=== PATIENT | female | born 1995 | race Caucasian/White ===

== ENCOUNTER 2016-11-18 23:59 | Outpatient (CLI) | payer OTHER ==
[~2016-11-18] VITALS: Ht 167.6 cm; Wt 95.0 kg
[2016-11-19 00:25] VITALS: BP 117/76
[2016-11-19] MEDS ORDERED: TYLE325T5 PO (00:40)
[2016-11-19] MEDS ORDERED: PRENTAB9 PO (00:40)
== END 2016-11-19 02:00 | disposition home or self-care (01) ==
LOC: M LDO 23:59
PROVIDERS: ATTEND Obstetrics & Gynecology
DX: O26.892 Other specified pregnancy related conditions, second trimester (principal); R06.02 Shortness of breath; R51 Headache; M54.5 Low back pain; Z3A.24 24 weeks gestation of pregnancy

== ENCOUNTER 2016-11-23 23:08 | Emergency (ER) | payer OTHER ==
[~2016-11-23] VITALS: Ht 182.9 cm; Wt 113.4 kg
[~2016-11-23 23:08] MED LIST: PRENTAB9 PO; TYLE325T5 PO
[2016-11-23 23:09] VITALS: BP 119/69
[2016-11-24] MEDS ORDERED: AMOX500C PO (16:44)
== END 2016-11-24 01:51 | disposition left against medical advice (07) ==
LOC: M ED 11-24 00:35
DX: R22.0 Localized swelling, mass and lump, head (principal)

== ENCOUNTER 2016-11-24 15:46 | Emergency (ER) | payer OTHER ==
[~2016-11-24] VITALS: Ht 182.9 cm; Wt 97.5 kg
[2016-11-24 15:46] VITALS: BP 124/65
[2016-11-24] MEDS ORDERED: AMOX500C PO (16:44)
== END 2016-11-24 17:03 | disposition home or self-care (01) ==
LOC: M ED 16:54
DX: K04.7 Periapical abscess without sinus (principal)

== ENCOUNTER 2017-01-11 17:14 | Outpatient (CLI) | payer OTHER ==
[~2017-01-11] VITALS: Ht 182.9 cm; Wt 98.0 kg
[~2017-01-11 17:14] MED LIST changes: +AMOX500C PO
[2017-01-11 18:11] LABS: MEAN CORPUSCULAR HEMOGLOBIN 30.8 pg (27.0-33.0); MEAN CORPUSCULAR HGB CONC 34.9 g/dl (32.0-36.5); MEAN CORPUSCULAR VOLUME 88.3 fl (80.0-96.0); RED CELL DISTRIBUTION WIDTH 12.7 % (11.5-14.5); WHITE BLOOD COUNT 12.9 K/mm3 (4.0-10.0)
[2017-01-11 18:33] LABS: ALBUMIN 3.1 GM/DL (3.2-5.2); ALBUMIN/GLOBULIN RATIO 0.82 (1.00-1.93); ALKALINE PHOSPHATASE 109 U/L (45-117); ALT/SGPT 20 U/L (12-78); ANION GAP 9 MEQ/L (8-16); AST/SGOT 15 U/L (15-37); BILIRUBIN,TOTAL 0.4 MG/DL (0.2-1.0); BLOOD UREA NITROGEN 6 MG/DL (7-18); CALCIUM LEVEL 8.6 MG/DL (8.5-10.1); CARBON DIOXIDE LEVEL 21 MEQ/L (21-32); CHLORIDE LEVEL 104 MEQ/L (98-107); CREATININE FOR GFR 0.67 MG/DL (0.55-1.02); GLOMERULAR FILTRATION RATE > 60.0 (>60); GLUCOSE, FASTING 102 MG/DL (70-105); POTASSIUM SERUM 3.6 MEQ/L (3.5-5.1); SODIUM LEVEL 134 MEQ/L (136-145); TOTAL PROTEIN 6.9 GM/DL (6.4-8.2)
== END 2017-01-11 19:25 | disposition home or self-care (01) ==
LOC: M LDO 17:14 → EDBD 17:14 → M LDO 19:25
PROVIDERS: ATTEND Student in an Organized Health Care Education/Training Program
DX: O26.893 Other specified pregnancy related conditions, third trimester (principal); Z3A.28 28 weeks gestation of pregnancy; M54.5 Low back pain; R11.0 Nausea; R53.81 Other malaise

== ENCOUNTER 2017-02-19 21:48 | Outpatient (CLI) | payer OTHER ==
[~2017-02-19] VITALS: Ht 182.9 cm; Wt 100.0 kg
[2017-02-19 21:54] VITALS: BP 125/69
== END 2017-02-19 22:30 | disposition home or self-care (01) ==
LOC: M LDO 21:48
PROVIDERS: ATTEND Student in an Organized Health Care Education/Training Program
DX: O47.1 False labor at or after 37 completed weeks of gestation (principal); Z3A.37 37 weeks gestation of pregnancy; Z88.2 Allergy status to sulfonamides

== ENCOUNTER 2017-03-16 05:58 | Inpatient (IN) | payer OTHER ==
[~2017-03-16] VITALS: Ht 182.9 cm; Wt 70.0 kg
[2017-03-16] VITALS (21 sets, daily range): BP systolic 86–124; BP diastolic 48–82
[2017-03-16 06:49] LABS: MEAN CORPUSCULAR HEMOGLOBIN 30.9 pg (27.0-33.0); MEAN CORPUSCULAR HGB CONC 35.7 g/dl (32.0-36.5); MEAN CORPUSCULAR VOLUME 86.6 fl (80.0-96.0); RED CELL DISTRIBUTION WIDTH 13.8 % (11.5-14.5); WHITE BLOOD COUNT 11.8 K/mm3 (4.0-10.0)
[2017-03-16] MEDS ORDERED: miSOPROStol 50 MCG 1/2 TAB (S0191) PO ONE (09:00)
[2017-03-16] MEDS: LR 1,000 ML IV SCH ×2 (09:03→14:21)
[2017-03-16] MEDS ORDERED: ACETAMINOPHEN TAB 650MG DOSE (2X325MG) PO ONE (10:00)
[2017-03-16] MEDS ORDERED: OXYTOCIN DRIP 30 UNITS in APPROPRIATE DILUENT 1 EA IV SCH (15:00)
[2017-03-16] MEDS ORDERED: OXYTOCIN 30 UNITS IN 0.9% NaCl 500ML IV BAG (J2590) As Ordered ONE (15:00)
--- NOTE | 2017-03-16 23:19 | IPNPDOC ---
Text Note Date of Service The patient was seen on 03/16/17. NOTE SBAR from [facility] Hitesh ~1946 H&P reviewed and chart as well Pit at 10 mu/min NST shows mod cydney but more lates than not last ~20-30 min... due to BL change not noticed by the staff. Pos change with immediate resolution. Cx /-2 Plan on recheck in ~4 hrs, sooner prn. Cont to up pitocin to keep ctx's reg, epidural OK on demand. Sessions VS,Kerri, I+O VS, Kerri, I+O Laboratory Tests 03/16/17 06:30 Red Blood Count 4.16, Mean Corpuscular Volume 86.6, Mean Corpuscular Hemoglobin 30.9, Mean Corpuscular Hemoglobin Concent 35.7, Red Cell Distribution Width 13.8 Vital Signs Date Time Temp Pulse Resp B/P (MAP) Pulse Ox O2 Delivery O2 Flow Rate FiO2 03/16/17 18:02 98.2 78 18 112/66 (81) SESSIONS,TED Sosa MD Mar 16, 2017 23:19
[2017-03-16] MEDS ORDERED: CALCIUM CARBONATE 500 MG CHEW U/D PO PRN (23:45)
[2017-03-17] VITALS (74 sets, daily range): BP systolic 83–124; BP diastolic 48–77
--- NOTE | 2017-03-17 03:22 | IPNPDOC ---
Text Note Date of Service The patient was seen on 03/17/17. NOTE Pit at 7 mu/min, pain getting very significant NST Cat 1, Reg ctx's Cx unchanged Desires Nubain /Phenergan Incr pitocin per SOP Recheck ~0730, will SBAR to Dr Carranza at that time Sessions MD HERNANDEZ,Kerri, I+O VSKerri I+O Laboratory Tests 03/16/17 06:30 Red Blood Count 4.16, Mean Corpuscular Volume 86.6, Mean Corpuscular Hemoglobin 30.9, Mean Corpuscular Hemoglobin Concent 35.7, Red Cell Distribution Width 13.8 Vital Signs Date Time Temp Pulse Resp B/P (MAP) Pulse Ox O2 Delivery O2 Flow Rate FiO2 03/16/17 23:32 63 17 99/55 (70) 03/16/17 18:02 98.2 I&O- Last 24 Hours up to 6 AM 03/17/17 05:59 Intake Total 1880 ml Output Total 1600 ml Balance 280 ml SESSIONS,TED Sosa MD Mar 17, 2017 03:22
[2017-03-17] MEDS ORDERED: NALBUPHINE HCL 10 MG/ML AMP (J2300) IV ONE (03:30)
[2017-03-17] MEDS ORDERED: PROMETHAZINE INJ 25 MG/ML VIAL (J2550) IV ONE (03:30)
[2017-03-17] MEDS ORDERED: NALBUPHINE HCL 10 MG/ML AMP (J2300) IM ONE (03:30)
[2017-03-17] MEDS ORDERED: FENTANYL 2MCG/ML ROPIVACAINE 0.2% IN 0.9% NACL 200ML IVBAG As Ordered ONE (07:09)
[2017-03-17] MEDS ORDERED: REFRIGERATOR IV KEYS XX PRN (08:45)
[2017-03-17] MEDS ORDERED: EPIDURAL COMMENT XX SCH (08:45)
[2017-03-17] MEDS ORDERED: EPIDURAL/PCA KEYS XX PRN (08:45)
[2017-03-17] MEDS ORDERED: LACTATED RINGER'S 1000 ML IV PRN (08:45)
[2017-03-17] MEDS ORDERED: diphenhydrAMINE INJ 50MG/ML VIAL (J1200) IV PRN (08:45)
[2017-03-17] MEDS ORDERED: ePHEDrine SULFATE 25 MG/5 ML(5MG/ML) SYRINGE IV PRN (08:45)
[2017-03-17] MEDS: FENTANYL/ROPIVACAINE/NACL BAG 200 ML EPIDURAL SCH (08:45)
[2017-03-17] MEDS ORDERED: ONDANSETRON 4MG/2ML VIAL (J2405) IV PRN ×2 (08:45→19:40)
[2017-03-17] MEDS ORDERED: NALOXONE INJ 0.4 MG/1 ML VIAL (J2310) IV PRN ×3 (08:45→19:40)
[2017-03-17] MEDS: LR 1,000 ML IV SCH (14:10)
[2017-03-17] MEDS ORDERED: BUPIVACAINE HCL 0.25% 10 ML VIAL SC ONE (17:15)
[2017-03-17] MEDS ORDERED: BICITRA 30ML SOLN UDC PO ONE (17:15)
[2017-03-17] MEDS ORDERED: ACETAMINOPHEN 650 MG SUPP PR ONE (17:15)
[2017-03-17] MEDS ORDERED: AZITHROMYCIN INJ 500 MG, VIAL MATE ADAPTER 1 EACH in D5W 250 ML IV ONE (17:15)
[2017-03-17 17:34] LABS: MEAN CORPUSCULAR HEMOGLOBIN 30.4 pg (27.0-33.0); MEAN CORPUSCULAR HGB CONC 34.9 g/dl (32.0-36.5); MEAN CORPUSCULAR VOLUME 87.2 fl (80.0-96.0); RED CELL DISTRIBUTION WIDTH 13.5 % (11.5-14.5); WHITE BLOOD COUNT 14.7 K/mm3 (4.0-10.0)
[2017-03-17] MEDS ORDERED: KETOROLAC 60 MG/2 ML VIAL (J1885) As Ordered ONE (19:06)
[2017-03-17] MEDS ORDERED: OXYTOCIN INJ 10 UNITS/ML VIAL (J2590) As Ordered ONE (19:06)
[2017-03-17] MEDS ORDERED: ONDANSETRON 4MG/2ML VIAL (J2405) As Ordered ONE (19:06)
[2017-03-17] MEDS ORDERED: MORPHINE PRES-FREE INJ 10 MG/10 ML VIAL (J2274) As Ordered ONE (19:06)
[2017-03-17] MEDS ORDERED: METOCLOPRAMIDE INJ 10MG/2ML VIAL (J2765) IV PRN (19:40)
[2017-03-17] MEDS ORDERED: NALBUPHINE HCL 10 MG/ML AMP (J2300) IV PRN ×2 (19:40→20:45)
[2017-03-17 19:42] LABS: CORD GAS HCO3 A 26.9 MEQ/L; CORD GAS PCO2 A 69.7 mmHg; CORD GAS PH A 7.204 UNITS; CORD GAS PO2 A 18.8 mmHg; CORD GAS SBC A 20.3 MEQ/L
[2017-03-17 19:45] LABS: CORD GAS ABE V -3.8; CORD GAS HCO3 V 22.1 MEQ/L; CORD GAS O2 SAT V 49.5 %; CORD GAS PCO2 V 43.2 mmHg; CORD GAS PH V 7.327 UNITS; CORD GAS PO2 V 22.1 mmHg; CORD GAS SBC V 20.2 MEQ/L; CORD GAS TCO2 V 23.4 MEQ/L
[2017-03-17] MEDS ORDERED: RHOGAM 300 MCG (1500 IU) INJ (J2790) IM SCH (20:15)
[2017-03-17] MEDS ORDERED: ANUSOL HC CREAM 30GM TOP PRN (20:15)
[2017-03-17] MEDS ORDERED: DOCUSATE SODIUM 100 MG CAP PO PRN (20:15)
[2017-03-17] MEDS ORDERED: PERCOCET 5MG/325MG TAB PO PRN ×2 (20:15)
[2017-03-17] MEDS ORDERED: METHYLERGONOVINE MALEATE 0.2 MG TAB PO PRN (20:15)
[2017-03-17] MEDS ORDERED: MOM 30ML SUSPENSION UDC PO PRN (20:15)
[2017-03-17] MEDS ORDERED: MEASLES,MUMPS,RUBELLA VACCINE INJ (MMR-II) (90707) SC SCH (20:15)
[2017-03-17] MEDS ORDERED: MEPERIDINE INJ 25 MG/ML VIAL (J2175) IV PRN (20:45)
[2017-03-17] MEDS ORDERED: LR 1,000 ML IV SCH (20:45)
[2017-03-17] MEDS ORDERED: fentaNYL 100 MCG/2 ML INJECTION (J3010) IV PRN (20:45)
[2017-03-17] MEDS: OXYTOCIN DRIP 30 UNITS in APPROPRIATE DILUENT 1 EA IV SCH (20:59)
--- NOTE | 2017-03-17 22:22 | RO ---
DATE OF PROCEDURE: 03/17/2017 This lady is a 1, para 0 admitted at 41 weeks for induction of labor. She had Cytotec and Pitocin, artificial rupture of membranes and she consistently had intermittent late decelerations with the Pitocin on, we turned the Pitocin off. Category one strip was entertained. Pitocin was placed on again. Late decelerations, intermittent. Always having good variability. She got to about 4 cm dilatation with the presenting part not well applied to the cervix in the persistent occiput posterior (POP) position. Eventually, with the inability to have contractions and have a good strip we after discussing with the patient and , elected to do a primary section. PREPROCEDURE DIAGNOSES: Nonreassuring heart strip on Pitocin. Post age gestation, failure to dilated, failure to descend, POP position. POSTPROCEDURE DIAGNOSES: Nonreassuring heart strip on Pitocin. Post age gestation, failure to dilated, failure to descend, POP position. Macrosomia. SURGEON: Mukesh Carranza MD SUPERINTENDENT REFUSE DISPOSAL: Raquel Perla MD ANESTHESIA: Epidural plus local anesthetic for intraperitoneal procedures. ESTIMATED BLOOD LOSS: 350 mL DESCRIPTION OF PROCEDURE: Under adequate anesthesia, prepped and draped in the supine position, a time-out was performed. Appropriate antibiotic therapy was introduced. A Pfannenstiel incision was made two fingerbreadths above symphysis pubis. Passing through abdominal layers securing hemostasis. Opening peritoneal cavity. Bladder was reflected down anteriorly. Low transverse incision was made into the uterus. We delivered a live female infant weighing 9 pounds 13 ounces in the POP position, 4450 grams, of 7 and 9 and one and five minutes respectively. Placenta was manually removed. Three-vessel cord, membranes and tissues intact. Arterial and venous pH was performed. The uterus contracted well under Pitocin. The lower segment was oversewn in usual fashion in two layers and reperitonealization was performed. With instrument and pad count correct, the abdomen was then closed, running stitch for the peritoneum, same for the fascia, interrupted subcutaneous, Dexon to the skin, Marcaine 0.25% 10 ml, Dermabond and Telfa were applied and the patient was taken back to recovery in good condition.
[2017-03-18] MEDS: LR 1,000 ML IV SCH (00:03)
[2017-03-18] MEDS: OXYTOCIN DRIP 30 UNITS in APPROPRIATE DILUENT 1 EA IV SCH (00:13)
[2017-03-18 02:00] VITALS: BP 110/64
[2017-03-18] MEDS: FENTANYL/ROPIVACAINE/NACL BAG 200 ML EPIDURAL SCH (04:45)
[2017-03-18] MEDS: IBUPROFEN 800 MG TAB PO SCH ×3 (05:04→19:44)
[2017-03-18 06:00] VITALS: BP 106/74
[2017-03-18 07:05] LABS: MEAN CORPUSCULAR HEMOGLOBIN 30.8 pg (27.0-33.0); MEAN CORPUSCULAR HGB CONC 35.2 g/dl (32.0-36.5); MEAN CORPUSCULAR VOLUME 87.3 fl (80.0-96.0); RED CELL DISTRIBUTION WIDTH 13.7 % (11.5-14.5); WHITE BLOOD COUNT 17.4 K/mm3 (4.0-10.0)
[2017-03-18] MEDS ORDERED: INFLUENZA QUADRIVALENT PF VACCINE 0.5ML SYRINGE (90686) IM ONE (09:00)
[2017-03-18 10:15] VITALS: BP 108/62
[2017-03-18] MEDS: PRENATAL VITAMINS CHEWABLE TABLET PO SCH (12:14)
[2017-03-18 14:00] VITALS: BP 112/78
--- NOTE | 2017-03-18 17:34 | IPN ---
DATE: 03/18/2017 This lady was admitted for induction of labor at 41+ weeks of gestation. She had a primary section for failure to descend, nonreassuring heart tone with Pitocin, persistent occiput posterior macrosomia. Female, 9 pounds 13 ounces, 4450 grams, scores of 7 and 9 at one and five minutes, respectively. Arterial pH 7.20, base excess -3.0, venous pH 7.32, base excess -3.8. Her admitting hemoglobin was 12.9, hematocrit 36.0, platelets 198. day #1 hemoglobin 10.7, hematocrit 30.3, platelets 185. Her vital signs today are blood pressure 108/62, respirations 18, pulse 92, temperature 96.8. She is presently doing well, attempting to breastfeed. Uterus 2 below. Lochia is moderate. Incisions are clean and dry. We discussed phlebitis, cystitis, mastitis, metritis, and cellulitis, diet, exercise pain management, and perineal, breast, and wound care. She is planning on IUCD at her 6-week checkup. Presently doing well. Anticipating home for tomorrow. Medications at discharge.
[2017-03-18 18:20] VITALS: BP 111/55
[2017-03-18 22:44] VITALS: BP 102/53
[2017-03-19] MEDS: IBUPROFEN 800 MG TAB PO SCH (04:17)
[2017-03-19 05:48] VITALS: BP 99/51
[2017-03-19] MEDS: PRENATAL VITAMINS CHEWABLE TABLET PO SCH (09:23)
[2017-03-19] MEDS ORDERED: COLA100C5 PO (10:13)
[2017-03-19] MEDS ORDERED: IBUP-1114 PO (10:13)
[2017-03-19] MEDS ORDERED: OXYC1TAB23 PO (10:13)
== END 2017-03-19 13:48 | disposition home or self-care (01) | DRG 766 ==
LOC: M LDI 05:58 → M OBS 03-17 21:30
PROVIDERS: ADMIT Obstetrics & Gynecology; ATTEND Obstetrics & Gynecology
PROC: 3E0DXGC Introduction of Other Therapeutic Substance into Mouth and Pharynx, External Approach (ICD-10-PCS; 2017-03-16)
PROC: 10907ZC Drainage of Amniotic Fluid, Therapeutic from Products of Conception, Via Natural or Artificial Opening (ICD-10-PCS; 2017-03-17)
PROC: 10D00Z1 Extraction of Products of Conception, Low, Open Approach (ICD-10-PCS; principal; 2017-03-17 19:24)
DX: O48.0 Post-term pregnancy (principal); Z37.0 Single live birth; Z3A.41 41 weeks gestation of pregnancy; Z88.2 Allergy status to sulfonamides; Z79.899 Other long term (current) drug therapy; O32.4XX0 Maternal care for high head at term, not applicable or unspecified; O76 Abnormality in fetal heart rate and rhythm complicating labor and delivery; O66.2 Obstructed labor due to unusually large fetus

== ENCOUNTER 2017-04-10 22:09 | Emergency (ER) | payer OTHER ==
[~2017-04-10] VITALS: Ht 182.9 cm; Wt 95.3 kg
[~2017-04-10 22:09] MED LIST changes: +COLA100C5 PO; +IBUP-1114 PO; +OXYC1TAB23 PO
[2017-04-10 22:10] VITALS: BP 117/69
[2017-04-10] MEDS ORDERED: BENA25TA10 PO (22:45)
[2017-04-10] MEDS ORDERED: predniSONE 20 MG TAB PO ONE (22:45)
[2017-04-10] MEDS ORDERED: diphenhydrAMINE 25 MG CAP PO ONE (22:45)
[2017-04-10] MEDS ORDERED: MEDR4PAK PO (22:45)
== END 2017-04-10 23:00 | disposition home or self-care (01) ==
LOC: M ED 22:09
DX: L23.9 Allergic contact dermatitis, unspecified cause (principal); Y92.9 Unspecified place or not applicable; Y93.9 Activity, unspecified; Z88.2 Allergy status to sulfonamides